=== PATIENT | female | born 2000 | race African-American/Black ===

== ENCOUNTER 2019-03-30 19:01 | Emergency (ER) | payer OTHER, MEDICAID ==
[~2019-03-30] VITALS: Ht 170.2 cm; Wt 98.9 kg
[2019-03-30 21:04] VITALS: BP 137/83
[2019-03-30] MEDS ORDERED: LIDOCAINE W/ EPINEPHRINE 2% INJ 20ML VIAL IJ ONE (21:15)
[2019-03-30] MEDS ORDERED: ACETAMINOPHEN/CODEINE#3 (300/30mg) TAB PO ONE (21:15)
[2019-03-30] MEDS ORDERED: cefTRIAXone SOD 1,000 MG VL IM ONE (21:15)
== END 2019-03-30 21:47 | disposition home or self-care (01) ==
LOC: ER 19:01
DX: D24.1 Benign neoplasm of right breast (principal)
CPT/HCPCS: 10060; 96372; 99283; C1887; J0696

== ENCOUNTER 2019-03-31 15:47 | Emergency (ER) | payer OTHER, MEDICAID ==
[~2019-03-31] VITALS: Ht 170.2 cm; Wt 97.5 kg
[2019-03-31 15:55] VITALS: BP 132/78
== END 2019-03-31 17:39 | disposition home or self-care (01) ==
LOC: ER 15:47
DX: L02.411 Cutaneous abscess of right axilla (principal); Z48.01 Encounter for change or removal of surgical wound dressing